=== PATIENT | female | born 1985 | race Caucasian/White ===

== ENCOUNTER 2016-08-01 21:45 | Emergency (ER) | payer BC ==
[2016-08-01 21:56] VITALS: BP 141/80; PULSE 82; TEMP 98.2; BMI 33.0
[2016-08-02] MEDS ORDERED: diazePAM 5 MG TABLET PO ONE (00:55)
[2016-08-02] MEDS ORDERED: KETOROLAC TROMETHAMINE 60 MG/2 ML VIAL IM ONE (00:55)
[2016-08-02] MEDS ORDERED: ONDANSETRON *ODT* 4 MG TABLET SL ONE (00:56)
--- NOTE | 2016-08-02 01:12 | PDOC ---
History of Present Illness - General Chief Complaint: Pain, Acute Stated Complaint: NECK PAIN/HEADACHE/NAUSEA Time Seen by Provider: 08/02/16 00:35 - History of Present Illness Initial Comments: 08/02/16 01:36 CHIEF COMPLAINT: neck pain HISTORY OF PRESENT ILLNESS: 31 yo F with no PMH presents to ED with pain to left neck x 3 days. Patient states that she went to [place] one week ago and returned 3 days ago. She states that prior to getting on the return flight, she felt a little bit of discomfort to her neck, and since then it has gotten worse. She has taken Tylenol with no relief and states that the pain is causing her to have a headache and nausea. She denies any fever, chills, vomiting, or diarrhea. Her LMP was 6 days ago she denies any chance of . No recent travel or sick contacts. PAST MEDICAL HISTORY: Denies past medical history FAMILY HISTORY: Denies SOCIAL HISTORY: Denies tobacco, alcohol, illicit drug use. SURGICAL HISTORY: Denies ALLERGIES: No known drug allergies REVIEW OF SYSTEMS General/Constitutional: Denies fever or chills. Denies weakness, weight change. HEENT: Denies change in vision. Denies ear pain or discharge. Denies sore throat. Cardiovascular: Denies chest pain or shortness of breath. Respiratory: Denies cough, wheezing, or hemoptysis. Gastrointestinal: Denies nausea, vomiting, diarrhea or constipation. Denies rectal bleeding. Genitourinary: Denies dysuria, frequency, or change in urination. Musculoskeletal: Left neck pain. Denies joint or muscle swelling or pain. Skin and breasts: Denies rash or easy bruising. Neurologic: "My head is starting to hurt from all the pain in my neck." Denies vertigo, loss of consciousness, or loss of sensation. PHYSICAL EXAM General Appearance: Well-appearing, appropriately dressed. No apparent distress , no intoxication. HEENT: EOMI, PERRLA, normal ENT inspection, normal voice, TMs normal, pharynx normal. No conjunctival pallor. No photophobia, scleral icterus. Neck: See MSK. Supple. Trachea midline. No tenderness, rigidity, carotid bruit , stridor, lymphadenopathy, or thyromegaly. Respiratory/Chest: Lungs CTAB. Cardiovascular: RRR. S1, S2. Gastrointestinal/Abdominal: Normal bowel sounds. Abdomen soft, non-distended. No tenderness or rebound tenderness. No organomegaly, pulsatile mass, guarding , hernia, hepatomegaly, splenomegaly. Musculoskeletal/Extremities: Tenderness to left trapezius. Mildly limited lateral ROM to neck secondary to discomfort. Normal inspection. FROM of all extremities, normal capillary refill. Pelvis Stable. No CVA tenderness. No tenderness to extremities, pedal edema, swelling, erythema or deformity. Integumentary: Appropriate color, dry, warm. 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 Fully oriented, alert. Appropriate mood/affect. Motor strength 5/5. No appreciable EOM palsy, facial droop or sensory deficit. 08/02/16 04:55 Past History - Past Medical History Allergies/Adverse Reactions: Allergies Allergy/AdvReac Type Severity Reaction Status Date / Time No Known Allergies Allergy Verified 08/01/16 21:53 Home Medications: Ambulatory Orders Azithromycin [Zithromax 250mg Tablets -] 250 mg PO UTDICT #6 tab 01/05/16 Guaifenesin Dm [Mucinex Dm -] 1 tab PO Q12H PRN #10 tab.er.12h MDD 2 01/05/16 Cyclobenzaprine HCl [Flexeril 10 mg] 10 mg PO HS PRN #5 tablet 08/02/16 Naproxen [Naprosyn -] 250 mg PO BID #14 tablet 08/02/16 Anemia: No Asthma: Yes - Surgical History Abdominal Surgery: Yes (2 D&C) - Immunization History Immunization Up to Date: Yes - Psycho/Social/Smoking Cessation Hx Anxiety: No Suicidal Ideation: No Smoking Status: No Smoking History: Never smoked Number of Cigarettes Smoked Daily: 0 Hx Alcohol Use: No Drug/Substance Use Hx: No Substance Use Type: None, Alcohol *Physical Exam - Vital Signs Last Vital Signs Temp Pulse Resp BP Pulse Ox 98.2 F 82 18 141/80 98 08/01/16 21:53 08/01/16 21:53 08/01/16 21:53 08/01/16 21:53 08/01/16 21:53 Medical Decision Making - Medical Decision Making 08/02/16 02:22 31 yo F with no PMH presents to ED with pain to left neck x 3 days. -Toradol -Valium -Zofran Patient reassessed, states that her pain is unrelieved after administration of meds. Discussed case with attending MD Enamorado, will CT cervical spine to r/o acute pathology. 08/02/16 04:55 CT results: Slight reversal of the cervical lordosis which could be due to muscle spasm. Cervical vertebrae are otherwise normally aligned. No fracture or destructive bone lesion. No appreciable bony degenerative changes. No appreciable disc disease. However degenerative disc disease and canal/cord disease are better evaluated with MRI. Read by: Donaldo Burrows MD Flexeril, naproxen rx sent to pharm. Advised patient to take meds as prescribed and f/u with ortho this week. Advised patient of signs and symptoms for return to ER; patient verbalize understanding and agrees to plan. *DC/Admit/Observation/Transfer Diagnosis at time of Disposition: Muscle spasm - Discharge Dispostion Admit: No - Prescriptions Prescriptions: Cyclobenzaprine HCl [Flexeril 10 mg] 10 mg PO HS PRN #5 tablet PRN Reason: Muscle Spasms Naproxen [Naprosyn -] 250 mg PO BID #14 tablet - Referrals Referrals: Donaldo Henry MD [Staff Physician] - - Patient Instructions Printed Discharge Instructions: DI for Neck Pain Additional Instructions: Please take medications as prescribed; do not drive or operate machinery while taking Flexeril (cyclobenzaprine). Follow up with orthopedics this week. If you experience any sudden headache, difficulty breathing, change in vision, difficulty speaking, swallowing, or walking, or any new or worsening symptoms, please return to the ER.
--- NOTE | 2016-08-02 01:24 | PDOC ---
[id number] 98 08/01/16 21:53 08/01/16 21:53 08/01/16 21:53 08/01/16 21:53 08/01/16 21:53 Medical Decision Making - Medical Decision Making 08/02/16 01:24 agree with care from YAMILETH Kumar *DC/Admit/Observation/Transfer Diagnosis at time of Disposition: Muscle spasm - Discharge Dispostion Disposition: HOME - Prescriptions Prescriptions: Cyclobenzaprine HCl [Flexeril 10 mg] 10 mg PO HS PRN #5 tablet PRN Reason: Muscle Spasms Naproxen [Naprosyn -] 250 mg PO BID #14 tablet - Referrals Referrals: Donaldo Henry MD [Staff Physician] - - Patient Instructions Printed Discharge Instructions: DI for Neck Pain Additional Instructions: Please take medications as prescribed; do not drive or operate machinery while taking Flexeril (cyclobenzaprine). Follow up with orthopedics this week. If you experience any sudden headache, difficulty breathing, change in vision, difficulty speaking, swallowing, or walking, or any new or worsening symptoms, please return to the ER.
[2016-08-02] MEDS ORDERED: ONDANSETRON *ODT* 4 MG TABLET ONE (01:25)
[2016-08-02] MEDS ORDERED: diazePAM 5 MG TABLET ONE (01:25)
[2016-08-02] MEDS ORDERED: KETOROLAC TROMETHAMINE 60 MG/2 ML VIAL ONE (01:25)
== END 2016-08-02 04:54 | disposition home or self-care (01) ==
LOC: JER 21:45
PROC: 3E0233Z Introduction of Anti-inflammatory into Muscle, Percutaneous Approach (ICD-10-PCS; principal; 2016-08-01)
DX: M62.838 Other muscle spasm (principal)
CPT/HCPCS: 72125-TC; 84703; 99282-25

== ENCOUNTER 2017-03-28 12:43 | Emergency (ER) | payer BC ==
[2017-03-28 12:49] VITALS: BMI 27.1
[2017-03-28] MEDS ORDERED: ONDANSETRON *ODT* 4 MG TABLET SL ONE (14:21)
[2017-03-28] MEDS ORDERED: SODIUM CHLORIDE 1,000 ML IV STA (14:21)
--- NOTE | 2017-03-28 14:36 | PDOC ---
History of Present Illness - General Chief Complaint: Pain Stated Complaint: EVALUATION Time Seen by Provider: 03/28/17 14:13 History Source: Patient Exam Limitations: No Limitations - History of Present Illness Initial Comments: 03/28/17 14:22 31F with no pmh present with hourly vomiting and diarrhea since 11pm last night. She states that when she got home from work last night her freezer door was open, possibly by [employer], her cat. She made pork chops which were cold to lukewarm. She started feeling nauseous and proceeded to simultaneously vomit and move her bowels hourly until shortly before coming to the ER. Denies using any medication or contraceptives. Denies possibility of being . No sick contacts. Past History - Past Medical History Allergies/Adverse Reactions: Allergies Allergy/AdvReac Type Severity Reaction Status Date / Time No Known Allergies Allergy Verified 03/28/17 12:49 Home Medications: Ambulatory Orders Ondansetron [Zofran Odt -] 4 mg SL BID PRN #14 od.tablet 03/28/17 Anemia: No Asthma: Yes COPD: No - Surgical History Abdominal Surgery: Yes (2 D&C) - Immunization History Immunization Up to Date: Yes - Suicide/Smoking/Psychosocial Hx Smoking Status: No Smoking History: Never smoked Number of Cigarettes Smoked Daily: 0 Information on smoking cessation initiated: No Hx Alcohol Use: No Drug/Substance Use Hx: No Substance Use Type: None, Alcohol Abd/GI Specific PMHX - Complaint Specific PMHX GERD: No Review of Systems - Review of Systems Able to Perform ROS?: Yes Constitutional: Yes: Chills, Diaphoresis (last night) HEENTM: No: Symptoms Reported Respiratory: No: Symptoms reported Cardiac (ROS): No: Symptoms Reported ABD/GI: Yes: See HPI : No: Symptoms Reported Musculoskeletal: No: Symptoms Reported All Other Systems: Reviewed and Negative *Physical Exam - Vital Signs Last Vital Signs Temp Pulse Resp BP Pulse Ox 98.7 F 93 H 18 132/94 97 03/28/17 12:47 03/28/17 12:47 03/28/17 12:47 03/28/17 12:47 03/28/17 12:47 - Physical Exam General Appearance: Yes: Nourished, Appropriately Dressed. No: Apparent Distress HEENT: positive: EOMI, JOHN, Normal ENT Inspection Neck: negative: Tender Respiratory/Chest: positive: Lungs Clear, Normal Breath Sounds. negative: Chest Tender, Respiratory Distress Cardiovascular: positive: Regular Rhythm, Regular Rate, S1, S2 Gastrointestinal/Abdominal: positive: Soft, Increased Bowel Sounds. negative: Tender ED Treatment Course - LABORATORY CBC & Chemistry Diagram: 03/28/17 13:45 03/28/17 13:45 Medical Decision Making - Medical Decision Making 03/28/17 14:38 cbc, cmp, fluids and zofran 03/28/17 16:15 16.4 WBC 03/28/17 18:57 Total of 2 bolus of 1L NS Reglan Patient feels much better. Ok to discharge *DC/Admit/Observation/Transfer Diagnosis at time of Disposition: Gastroenteritis, Viral illness - Discharge Dispostion Disposition: HOME Condition at time of disposition: Improved Admit: No - Prescriptions Prescriptions: Ondansetron [Zofran Odt -] 4 mg SL BID PRN #14 od.tablet PRN Reason: Nausea And/Or Vomiting - Referrals - Patient Instructions Printed Discharge Instructions: DI for Viral Gastroenteritis -- Adult Additional Instructions: Follow up with your primary doctor within 3-4 days Come back to the ER for any new, worsening or concerning symptom. - Post Discharge Activity Forms/Work/School Notes: Back to Work
[2017-03-28] MEDS ORDERED: ONDANSETRON 4 MG/2 ML VIAL IVPUSH ONE (14:51)
[2017-03-28 15:15] LABS: BASO % 0.2 % (0-2.0); EOS % 0.5 % (0-4.5); HEMATOCRIT 48.3 % (32.4-45.2); HEMOGLOBIN 15.9 GM/dL (10.7-15.3); LYMPH % 17.7 % (8-40); MCH 29.3 pg (25.7-33.7); MEAN CELL VOLUME 88.9 fl (80-96); MEAN PLT VOLUME 8.2 fl (7.5-11.1); MONO % 5.3 % (3.8-10.2); NEUT % 76.3 % (42.8-82.8); PLATELET COUNT 325 K/MM3 (134-434); RBC 5.44 M/mm3 (3.60-5.2); RDW 14.1 % (11.6-15.6); WHITE BLOOD COUNT 16.5 K/mm3 (4.0-10.0)
[2017-03-28] MEDS ORDERED: LOPERAMIDE HCL 2 MG CAPSULE PO ONE (15:21)
[2017-03-28] MEDS ORDERED: LOPERAMIDE HCL 2 MG CAPSULE ONE (15:28)
[2017-03-28 15:44] LABS: ALBUMIN 4.6 g/dl (3.4-5.0); ALK PHOS 133 U/L (45-117); ANION GAP 12 (8-16); BILIRUBIN,TOTAL 0.5 mg/dL (0.2-1.0); BLOOD UREA NITROGEN 11 mg/dL (7-18); CALCIUM 10.2 mg/dL (8.5-10.1); CHLORIDE 102 mmol/L (98-107); CO2 26 mmol/L (21-32); CREATININE 0.9 mg/dL (0.55-1.02); GLUCOSE,RANDOM 97 mg/dL (74-106); POTASSIUM 4.2 mmol/L (3.5-5.1); SGOT/AST 41 U/L (15-37); SGPT/ALT 74 U/L (12-78); SODIUM 140 mmol/L (136-145); TOT PROT 8.9 g/dl (6.4-8.2)
[2017-03-28] MEDS ORDERED: SODIUM CHLORIDE 0.9% 500 ML INFUS.BAG IV ONE (16:09)
[2017-03-28 16:18] LABS: LIPASE 153 U/L (73-393)
[2017-03-28] MEDS ORDERED: METOCLOPRAMIDE HCL INJECTION 10 MG/2 ML VIAL IVPUSH ONE (16:38)
[2017-03-28] MEDS ORDERED: METOCLOPRAMIDE HCL INJECTION 10 MG/2 ML VIAL ONE (16:42)
[2017-03-28 17:29] VITALS: PULSE 89
--- NOTE | 2017-03-28 17:57 | PDOC ---
Attending Attestation - HPI HPI: 03/28/17 17:59 Patient is a 31 year old female with no significant past medical history who presents to the ED with complaints of hourly vomiting and diarrhea that began last night at 11pm. Patient reports eating pork chops last night that she considered to be room temperature, but tasted fine. She reports going to bed and waking up at 11pm due to nausea followed by episodes of vomiting and diarrhea. She has been unable to tolerate any liquid or food. Pt attempted to drink water in the ED but had an epsiode of emesis right after. Reports epigastric and LUQ pain that's cramping in nature intermittently. Denies chest pain, SOB. Denies fever, chills. Denies hematuria, dysuria, constipation. Denies focal weakness/numbness. Denies contact with sick individuals, out of state travelling. Denies any other symptoms. Allergies: No allergies Social history: No smoking. No alcohol. No illicit drugs. Surgical history: None PMD: None - Physicial Exam PE: 03/28/17 17:59 GENERAL: Awake, alert, and fully oriented, in no acute distress HEAD: No signs of trauma EYES: PERRLA, EOMI, sclera anicteric, conjunctiva clear ENT: Auricles normal inspection, hearing grossly normal, nares patent, oropharynx clear without exudates. dry MM NECK: Normal ROM, supple, no lymphadenopathy, JVD, or masses LUNGS: Breath sounds equal, clear to auscultation bilaterally. No wheezes, and no crackles HEART: Regular rate and rhythm, normal S1 and S2, no murmurs, rubs or gallops ABDOMEN: Soft, nontender, normoactive bowel sounds. No guarding, no rebound. No masses EXTREMITIES: Normal range of motion, no edema. No clubbing or cyanosis. No cords, erythema, or tenderness NEUROLOGICAL: Normal speech, cranial nerves intact, negative pronator drift, 5/ 5 strength in all 4 extremities, normal sensation to light touch in all 4 extremities, normal cerebellar exam, normal gait, normal reflexes and tone SKIN: Warm, Dry, normal turgor, no rashes or lesions noted. - Medical Decision Making 03/28/17 17:59 Documentation prepared by Rohit Jim, acting as manager medical device for Arcelia Millard MD, /DO. <Rohit Jim - Last Filed: 03/28/17 17:59> - Resident Resident Name: David Jackman - ED Attending Attestation I have performed the following: I have examined & evaluated the patient, The case was reviewed & discussed with the resident, I agree w/resident's findings & plan, Exceptions are as noted - Medical Decision Making 03/28/17 18:21 31-year-old female with no significant past medical history presents with multiple episodes of nonbloody and nonbilious vomiting and diarrhea. Vitals unremarkable. Exam with dry mucous membranes but no abdominal tenderness to palpation. Likely gastroenteritis versus colitis however differential includes but is not limited to versus pancreatitis. Will obtain labs, give fluids and anti-emetics as well as check a test and reassess. <Arcelia Millard - Last Filed: 03/28/17 18:23>
[2017-03-28 18:37] LABS: URINE APPEARANCE CLEAR; URINE BILIRUBIN NEGATIVE (NEGATIVE); URINE BLOOD NEGATIVE (NEGATIVE); URINE COLOR YELLOW; URINE GLUCOSE (UA) NEGATIVE (NEGATIVE); URINE KETONE 2+ (NEGATIVE); URINE LEUK ESTERASE NEGATIVE (NEGATIVE); URINE NITRITE NEGATIVE (NEGATIVE); URINE PROTEIN NEGATIVE (NEGATIVE); URINE UROBILINOGEN NEGATIVE mg/dL (0.2-1.0)
[2017-03-28 19:27] LABS: HCG,QUALITATIVE URINE NEGATIVE
[2017-03-28 19:29] VITALS: BP 123/73; TEMP 98.3
[2017-03-28] MEDS ORDERED: MECLIZINE HCL 25 MG TABLET (FP) ONE (19:56)
[2017-03-28] MEDS ORDERED: IBUPROFEN 600 MG TABLET (FP) PO ONE (19:56)
== END 2017-03-28 19:20 | disposition home or self-care (01) ==
LOC: JER 12:43
PROC: 3E0337Z Introduction of Electrolytic and Water Balance Substance into Peripheral Vein, Percutaneous Approach (ICD-10-PCS; principal; 2017-03-28)
PROC: 3E033GC Introduction of Other Therapeutic Substance into Peripheral Vein, Percutaneous Approach (ICD-10-PCS; 2017-03-28)
PROC: 3E033GC Introduction of Other Therapeutic Substance into Peripheral Vein, Percutaneous Approach (ICD-10-PCS; 2017-03-28)
DX: K52.9 Noninfective gastroenteritis and colitis, unspecified (principal)
CPT/HCPCS: 36415; 80053; 81003; 83690; 84702; 84703; 85025; 99283-25

== ENCOUNTER 2018-02-28 11:06 | Emergency (ER) | payer BC ==
--- NOTE | 2018-02-28 11:10 | PDOC ---
History of Present Illness - General Chief Complaint: Cold Symptoms Stated Complaint: STUFFY NOSE COUGHING HEADACHE Time Seen by Provider: 02/28/18 11:08 History Source: Patient Past History - Past Medical History Allergies/Adverse Reactions: Allergies Allergy/AdvReac Type Severity Reaction Status Date / Time No Known Allergies Allergy Verified 02/28/18 11:08 Home Medications: Ambulatory Orders Azithromycin [Zithromax -] 250 mg PO UTDICT #6 tab 02/28/18 Cetirizine HCl/Pseudoephedrine [Zyrtec-D Tablet] 1 each PO BID #20 tab.er.12h Cholecalciferol (Vitamin D3) [Vitamin D3] 1 cap PO DAILY 02/28/18 Anemia: No Asthma: Yes COPD: No - Surgical History Abdominal Surgery: Yes (2 D&C) - Immunization History Immunization Up to Date: Yes - Suicide/Smoking/Psychosocial Hx Smoking Status: No Smoking History: Never smoked Number of Cigarettes Smoked Daily: 0 Hx Alcohol Use: No Drug/Substance Use Hx: No Substance Use Type: None, Alcohol *DC/Admit/Observation/Transfer Diagnosis at time of Disposition: Bronchitis - Discharge Dispostion Disposition: HOME Condition at time of disposition: Stable Decision to Admit order: No - Prescriptions Prescriptions: Azithromycin [Zithromax -] 250 mg PO UTDICT #6 tab Cetirizine HCl/Pseudoephedrine [Zyrtec-D Tablet] 1 each PO BID #20 tab.er.12h - Referrals - Patient Instructions Printed Discharge Instructions: DI for Acute Bronchitis - Post Discharge Activity Forms/Work/School Notes: Back to Work
[2018-02-28 11:25] VITALS: BP 136/88; PULSE 79; TEMP 98.7; BMI 31.1
== END 2018-02-28 13:14 | disposition home or self-care (01) ==
LOC: FER 11:06
DX: J40 Bronchitis, not specified as acute or chronic (principal); J45.909 Unspecified asthma, uncomplicated
CPT/HCPCS: 71046-TC-FY; 87070; 87077; 87880; 99282-25

== ENCOUNTER 2018-06-19 20:09 | Emergency (ER) | payer BC, OTHER ==
[2018-06-19 20:16] VITALS: BP 125/88; PULSE 82; TEMP 98.3; BMI 32.8
--- NOTE | 2018-06-19 20:17 | PDOC ---
Rapid Medical Evaluation Time Seen by Provider: 06/19/18 20:13 Medical Evaluation: Allergies Allergy/AdvReac Type Severity Reaction Status Date / Time No Known Allergies Allergy Verified 02/28/18 11:08 06/19/18 20:13 The patient presents with a chief complaint of: fell years ago and states intermittent swelling and pain to leg, No SOB, no hx of dvt I have performed a brief in-person evaluation of this patient Pertinent physical exam findings: vss, tenderness to prox aspect of rt patella, No increased warmth Dvt study ordered The patient will proceed to the ED for further evaluation. Discharge Disposition - Diagnosis Leg pain - Referrals - Patient Instructions - Post Discharge Activity
--- NOTE | 2018-06-19 20:58 | PDOC ---
History of Present Illness - General Chief Complaint: Edema Stated Complaint: RIGHT KNEE PAIN Time Seen by Provider: 06/19/18 20:13 - History of Present Illness Initial Comments: 06/19/18 20:55 32-year-old female presents for evaluation of right knee pain times one year. She states her leg is been swollen over the last few days. There was no trauma. She states she did have a fall about a year ago and her knees always been hurting since then. She has no systemic symptoms Past History - Past Medical History Allergies/Adverse Reactions: Allergies Allergy/AdvReac Type Severity Reaction Status Date / Time No Known Allergies Allergy Verified 06/19/18 20:16 Home Medications: Ambulatory Orders Azithromycin [Zithromax -] 250 mg PO UTDICT #6 tab 02/28/18 Cetirizine HCl/Pseudoephedrine [Zyrtec-D Tablet] 1 each PO BID #20 tab.er.12h Cholecalciferol (Vitamin D3) [Vitamin D3] 1 cap PO DAILY 02/28/18 Anemia: No Asthma: Yes COPD: No - Surgical History Abdominal Surgery: Yes (2 D&C) - Immunization History Immunization Up to Date: Yes - Suicide/Smoking/Psychosocial Hx Smoking Status: No Smoking History: Never smoked Have you smoked in the past 12 months: No Number of Cigarettes Smoked Daily: 0 Information on smoking cessation initiated: No Hx Alcohol Use: No Drug/Substance Use Hx: No Substance Use Type: None, Alcohol Review of Systems - Review of Systems Musculoskeletal: Yes: Joint Pain *Physical Exam - Vital Signs Last Vital Signs Temp Pulse Resp BP Pulse Ox 98.3 F 82 18 125/88 99 06/19/18 20:14 06/19/18 20:14 06/19/18 20:14 06/19/18 20:14 06/19/18 20:14 - Physical Exam Comments: 06/19/18 20:55 Right knee range of motion 0-90 beyond that she guards. She has diffuse joint line tenderness. Tenderness about the superior pole of patella. Unable to tolerate stability testing. Thighs and calves are soft and nontender. She is neurovascular intact. Medical Decision Making - Medical Decision Making 06/19/18 20:56 Examination of knee and patient's pain level seems out of proportion. Doppler was negative. No DVT. I will refer her to orthopedic surgery for further evaluation and treatment options. Discussed use of anti-inflammatories *DC/Admit/Observation/Transfer Diagnosis at time of Disposition: Leg pain, Knee pain - Discharge Dispostion Disposition: HOME Condition at time of disposition: Stable Decision to Admit order: No - Referrals Referrals: Flor Zapien DO [Primary Care Provider] - Flavio Whitaker DO [Staff Physician] - - Patient Instructions Printed Discharge Instructions: DI for Knee Pain Additional Instructions: Continue the use of Aleve. You may also supplement the alieve with Tylenol. Return to the emergency room for worsening symptoms and follow-up with orthopedic surgery in 1-2 days for further evaluation and treatment options. - Post Discharge Activity
== END 2018-06-19 21:02 | disposition home or self-care (01) ==
LOC: JERFT 20:09
DX: M79.604 Pain in right leg (principal); M25.561 Pain in right knee
CPT/HCPCS: 93971-TC; 99281-25